=== PATIENT | female | born 1955 | race Caucasian/White ===

== ENCOUNTER 2017-04-15 12:17 | Day surgery (SDC) | payer BC ==
[2017-04-10 17:32] LABS: HEMATOCRIT 38.6 % (36.0-48.0); HEMOGLOBIN 13.1 g/dL (12.0-16.0)
[2017-04-10 17:39] LABS: PARTIAL THROMBO TIME 42.1 SEC (22.5-37.2); PROTIME (NOT ORD) 13.1 SEC (12.0-14.5)
--- NOTE | ~2017-04-15 | OP ---
Record Of [place] [id number] [place]. [address] NAME: MARICEL JOSHUA : 59 STATUS : [facility]#: [id number] AGE: 61 ADM/REG DATE : 04/15/17 MR#: [id number] REPORT SERV DATE: 04/22/17 DICTATED BY: DATE: REPORT STATUS : Draft TRANSCRIBED BY: MODL DATE: 04/22/17 DATE OF PROCEDURE: PREOPERATIVE DIAGNOSIS: Left maxillary sinusitis. POSTOPERATIVE DIAGNOSIS: Left maxillary sinusitis. PROCEDURE PERFORMED: Left maxillary antrostomy with tissue removal. ANESTHESIA: General. COMPLICATIONS: None. DISPOSITION: PACU, then home. CONDITION: Stable. SPECIMENS: Left maxillary sinus contents. FINDINGS: Thick, inspissated mucus consistent with allergic fungal sinusitis on the way of left maxillary sinus. ESTIMATED BLOOD LOSS: Minimal. INDICATIONS FOR PROCEDURE: Maricel Joshua is a 61-year-old female with left maxillary sinusitis and pain and pressure with drainage. Her CT scan shows inspissated, thick mucus involving the left maxillary sinus and polypoid changes. DESCRIPTION OF PROCEDURE: After informed consent was confirmed, the patient was brought to the operating room and placed on the operating room table in supine position. General endotracheal anesthesia was induced. The patient was prepped and draped in sterile surgical fashion. The nose was decongested and anesthetized with Afrin-soaked pledgets and soaked in lidocaine. A 0-degree endoscope was placed in the left nasal cavity. A Elba elevator was used to medialize the middle turbinate. Backbiter was used to remove portion of the uncinate process. The microdebrider was used to remove the residual uncinate process superiorly and inferiorly. Stammberger downbiter was used to remove the inferior portion. Maxillary sinus was opened. Thick, polypoid changes were noted as well as inspissated mucus. This was thoroughly irrigated out and suctioned free and removed using the microdebrider. Afterwards, this appeared much improved. The patient was then returned to care of Anesthesia and found to have uneventful weaning of anesthetic. She was awakened, extubated, and taken to the PACU in excellent condition. CINTHIA/KATINA Record Of On license of [facility] [address] [address] NAME: MARICEL JOSHUA : 59 STATUS : [facility]#: [id number] AGE: 61 ADM/REG DATE : 04/15/17 MR#: [id number] REPORT SERV DATE: 04/22/17 DICTATED BY: DATE: REPORT STATUS : Draft TRANSCRIBED BY: MODL DATE: 04/22/17 Nestor Salinas MD / [id number] CC: MD Nghia Castorena Jenny Bradshaw
[~2017-04-15 12:17] MED LIST: DENIES HOME MEDS; LEXAPRO PO; PROMETRIUM200 MG PO
== END 2017-04-15 17:01 | disposition home or self-care (01) ==
LOC: SDC 12:17
PROVIDERS: Otolaryngology
PROC: 099R4ZZ Drainage of Left Maxillary Sinus, Percutaneous Endoscopic Approach (ICD-10-PCS; principal; 2017-04-15 13:15)
DX: J32.8 Other chronic sinusitis (principal); B44.89 Other forms of aspergillosis; F41.9 Anxiety disorder, unspecified; M19.90 Unspecified osteoarthritis, unspecified site; E89.0 Postprocedural hypothyroidism; F32.9 Major depressive disorder, single episode, unspecified; Z88.8 Allergy status to other drugs, medicaments and biological substances; Z98.890 Other specified postprocedural states; Z98.891 History of uterine scar from previous surgery; Z79.899 Other long term (current) drug therapy; Z88.2 Allergy status to sulfonamides
CPT/HCPCS: 80048; 84703; 85014; 85018; 85610; 85730; 87015; 87070; 87075; 87102; 87116; 87205; 88305; 88312; 93005; A9270-GY; J2250; J2405; J2710; J3010